=== PATIENT | male | born 1990 | race Caucasian/White ===

== ENCOUNTER 2016-07-23 16:38 | Emergency (ER) | payer OTHER ==
[2016-07-23 17:24] VITALS: BP 127/83
--- NOTE | 2016-07-23 18:32 | UC ---
Dental HPI - HPI Summary HPI Summary: About 2 months ago R upper molar fell out after having minor chips for weeks. Broke off at the gum but had no pain until 2 days ago when tooth because quickly and acutely painful. Has apt with dentist in 2 days. - History of Current Complaint Chief Complaint: UCDentalProblem Stated Complaint: TOOTH, JAW AND HEAD PAIN Time Seen by Provider: 07/23/16 18:13 Hx Obtained From: Patient Onset/Duration: Gradual Onset, Lasting Days Severity: Moderate Aggravating: Heat, Cold, Chewing - Allergies/Home Medications Allergies/Adverse Reactions: Allergies Allergy/AdvReac Type Severity Reaction Status Date / Time No Known Allergies Allergy Verified 07/23/16 17:17 Home Medications: Home Medications Acetaminophen TAB* [Tylenol TAB*] 650 mg PO Q4H PRN 07/23/16 [History Confirmed 07/23/16] PMH/Surg Hx/FS Hx/Imm Hx Cardiovascular History Of: Reports: Hypertension - as a child - Surgical History Surgical History: None - Family History Known Family History: Positive: Hypertension - Social History Alcohol Use: Rare Substance Use Type: None Smoking Status (MU): Light Every Day Tobacco Smoker Amount Used/How Often: 4-5 sigarettes/day - Immunization History Most Recent Influenza Vaccination: fall 2015 Review of Systems Constitutional: Negative Skin: Negative Eyes: Negative ENT: Dental Pain Respiratory: Negative Cardiovascular: Negative Gastrointestinal: Negative Genitourinary: Negative Motor: Negative Neurovascular: Negative Musculoskeletal: Negative Neurological: Negative Psychological: Negative All Other Systems Reviewed And Are Negative: Yes Physical Exam Triage Information Reviewed: Yes Appearance: Well-Appearing, Pain Distress - mild Vital Signs: Initial Vital Signs Temp 97.7 F 07/23/16 17:19 Pulse 62 07/23/16 17:19 Resp 16 07/23/16 17:19 BP 127/83 07/23/16 17:19 Pulse Ox 100 07/23/16 17:19 Vital Signs Reviewed: Yes Eye Exam: Normal Eyes: Positive: Conjunctiva Clear ENT Exam: Normal ENT: Positive: Normal ENT inspection, Hearing grossly normal, Pharynx normal, TMs normal Dental: Positive: Dental Fracture @ - #3 Neck exam: Normal Neck: Positive: Supple Respiratory Exam: Normal Respiratory: Positive: Chest non-tender, Lungs clear, Normal breath sounds, No respiratory distress, No accessory muscle use Cardiovascular Exam: Normal Cardiovascular: Positive: RRR, No Murmur Musculoskeletal Exam: Normal Neurological Exam: Normal Neurological: Positive: Alert Psychological Exam: Normal Skin Exam: Normal Dental Complaint Course/Dx - Differential Dx/Diagnosis Provider Diagnoses: Tooth #3 pulpitis. elevated blood pressure due to pain Discharge - Discharge Plan Condition: Stable Disposition: HOME Prescriptions: HYDROcodone/ACETAMIN 5-325 MG* [[place] 5-325 TAB*] 1 - 2 tab PO BEDTIME PRN #4 tab MDD 2 PRN Reason: Pain Indomethacin CAP* [Indocin CAP*] 50 mg PO TID PRN #20 cap PRN Reason: Pain Penicillin VK TAB 500 MG(NF) [Penicillin VK 500 mg Tab(NF)] 500 mg PO QID #20 tab traMADol TAB* [Ultram*] 50 mg PO Q6HR PRN #15 tab MDD 4 PRN Reason: Pain Patient Education Materials: Toothache (ED) Referrals: No Primary Care Phys,NOPCP [Primary Care Provider] - Additional Instructions: Please follow up with your dentist on as previously scheduled. Come back if you have severe swelling, fever, or any other troubling symptoms.
== END 2016-07-23 18:32 | disposition home or self-care (01) ==
LOC: UCEAST 16:38
DX: K04.01 Reversible pulpitis (principal); R03.0 Elevated blood-pressure reading, without diagnosis of hypertension; F17.210 Nicotine dependence, cigarettes, uncomplicated
CPT/HCPCS: 99202; G0463